=== PATIENT | male | born 1965 | race Caucasian/White ===

== ENCOUNTER 2025-06-21 16:22 | Outpatient (AMB) | payer BC, SELFPAY ==
--- OUTSIDE RECORDS SUMMARY | 2024-10-30 13:33 | XMS_ITS | Encounter Summary ---
Author Organization [facility] Address [address] [place] [address] Care Team Providers Care Cell Biologist Name Role Phone Unknown Primary Care Provider [phone] Encounter Details Date Type Department Care Team (Late st Contact Info) Description 10/30/2024 12:33 PM EST Hospital Encounter [facility] [address] [place] [address] Social History Tobacco Use Types Packs/Day Years Used Date Smoking Tobacco: Never Assessed Sex and Gender Information Value Date Recorded Sex Assigned at Male 08/04/2023 9:49 AM EDT Legal Sex Male 9:48 AM EDT Gender Identity Not on file Sexual Orientation Not on file documented as of this encounter Plan of Treatment Not on file documented as of this encounter Procedures Procedure Name Priority Date/Time Associated Diagnosis Comments XR ELBOW 3+ VIEWS-RIGHT STAT 10/30/2024 12:38 PM EST Right elbow pain documented in this encounter Results * XR Elbow 3+ views-Right (10/30/2024 12:38 PM EST) Anatomical Region Laterality Modality Elbow Right Computed Radiogr aphy 10/30/2024 12:4 6 PM EST Impressions 10/30/2024 12:56 PM EST No significant osseous abnormality detected. Narrative 10/30/2024 12:56 PM EST XR ELBOW 3+ VIEWS-RIGHT: 10/30/2024 12:33 PM CLINICAL HISTORY: right olecranon tenderness, direct injury from fall. Right elbow pain. FINDINGS: The osseous structures are intact. There is no evidence of degenerative change. There is no evidence of significant arthropathy. There is no evidence of pathologic calcifications or soft tissue swelling. Procedure Note Kristofer Kwon MD - 10/30/2024 XR ELBOW 3+ VIEWS-RIGHT: 10/30/2024 12:33 PM CLINICAL HISTORY: right olecranon tenderness, direct injury from fall. Right elbow pain. FINDINGS: The osseous structures are intact. There is no evidence of degenerativechange. There is no evidence of significant arthropathy. There is noevidence of pathologic calcifications or soft tissue swelling. IMPRESSION: No significant osseous abnormality detected. Zack ENRIQUEZ [facility] ORDERAB LES Final Result documented in this encounter Visit Diagnoses Not on filedocumented in this encounter Care Teams Cell Biologist Relationship Specialty Start Date End Date Unknown Unknow Provider Address PCP - General 08/04/23 documented as of this encounter
--- OUTSIDE RECORDS SUMMARY | 2025-06-21 16:25 | XMS_ITS ---
Author Name [facility] Organization Unknown Problems Problem Status Onset Date Problem Type Date of Resoluti on Source Contusion of right elbow, initial encounter active EncounterDiagnosisAct [facility] Right elbow pain active EncounterDiagnosisAct [facility] Encounters Encounter Type Encounter Reason Primary Diagnosis Location Date Ambulatory [facility] 10/30/2024 Ambulatory Elbow Injury Elbow Injury [facility] 10/30/2024 Ambulatory Impacted cerumen, bilateral Impacted cerumen, bilateral [facility] 08/04/2023 Care Team Organization Name Specialty Phone Email Start Date End [facility] 08/04/2023 01/24/2025 [facility] 08/04/2023 08/04/2023
--- NOTE | 2025-06-21 16:26 | A.OFFVIS_ITS ---
Intake Visit Reasons: 1 year follow up Allergies No Known Allergies Allergy (Verified 06/21/25 16:28) Medication List - Last Reconciled 06/21/25 by Leticia Chance CNP amitriptyline 25 mg PO BEDTIME 90 days HPI Comments Details: He was doing okay. He works in a noisy factory. Hearing was getting worse and he had some occasional ringing in ears, worse when it was quiet. He had hearing test at work and was waiting for results. Headaches have been okay with amitriptyline. Sleep was usually okay. He has an upcoming appointment with his PCP. Not drinking. History of muscle tension type headache, previous history of alcohol use disorder, has not had any alcohol since 2017. He had an arachnoid cyst on his CAT scan. [facility] Medical History (Updated 06/21/25 @ 16:34 by Leticia Chance CNP) Cerebral cyst Tension headache Review of Systems Const Denies chills, Denies daytime sleepiness, Denies difficulty sleeping, Denies fatigue, Denies fever(s), Denies frequent falls, Reports headache(s), Denies increased appetite, Denies poor appetite, Denies snoring, Denies weakness, Denies weight gain and Denies weight loss Eyes Denies loss of vision ENT Denies vertigo, Denies dizziness, Reports headache(s), Denies neck pain and Reports tinnitus Card Denies chest pain at rest, Denies chest pain with activity, Denies syncope, Denies leg edema, Denies palpitations, Denies dyspnea and Denies dyspnea on exertion Resp Denies cough, Denies dyspnea, Denies dyspnea on exertion and Denies snoring GI Denies abdominal pain, Denies constipation, Denies heartburn, Denies diarrhea and Denies nausea Denies urinary frequency, Denies urinary incontinence and Denies urinary urgency Musc Denies abnormal gait, Denies back pain, Denies myalgias, Denies arthralgias, Denies neck pain, Denies numbness and Denies tingling Neuro Denies abnormal gait, Denies vertigo, Denies dizziness, Denies syncope, Denies frequent falls, Reports headache(s), Denies lack of coordination, Denies loss of vision, Denies memory loss, Denies numbness, Denies Other visual disturbances, Denies restless legs, Denies seizure-like activity, Denies tingling, Denies paresthesias, Denies tremor(s) and Denies weakness Psych Denies anxiety, Denies depression, Denies auditory hallucinations, Denies memory loss and Denies visual hallucinations Endo Denies fatigue and Denies palpitations Physical Exam Const Other: General Appearance:? normal, in no acute distress. Heart:? S1, S2 normal, no murmurs. Lungs:? clear anteriorly and posteriorly. Musculoskeletal:? normal. Extremities:? no edema. Psych:? alert, oriented, cognitive function intact, cooperative with exam. Neuro Other: Abnormal Neurological Findings:?Decreased hearing. Mental Status: alert and oriented X 3. Normal attention, orientation, memory, and affect. Cranial Nerves: Pupils are equal, round, and reactive to light. External ocular muscles are intact. Visual fnich are full, no ptosis. Face is symmetrical, no facial weakness or droop. Facial sensations are normal. Tongue protrudes in mi dline. Palate elevates symmetrically. Shoulder shrugging is normal Motor Examination: Normal muscle tone, bulk and strength. No atrophy or fasciculations. No drift of the extended upper extremities. DTR 2+. Plantars are flexor. Sensory Exam: Normal light touch, temperature, pinprick, vibration, and joint- position sensations. Rhomberg sign is absent. Coordination: No ataxia. No titubation. Hhsgnd-[id number], euqj-yrmb-pnbq test, and rapid alternating movements were normal. Gait Exam: Within normal limits. Cerebellar Signs: Kserij-ed-tdgb and ryqf-wu-edgp is normal. No dysdiadochokinesia. Extrapyramidal System: No tremor, rigidity with normal facial expressions. No bradykinesia. No bradyphrenia. Normal arm swing and posture. No propulsion or retropulsion. Speech: Normal. No dysphasia or dysarthria. Assessment & Plan Assessment & Plan (1) Tension headache: Code(s): G44.209 - Tension-type headache, unspecified, not intractable Category: Medical Plan: Continue amitriptyline 25mg 1 tablet at bedtime. (2) Cerebral cyst: Code(s): G93.0 - Cerebral cysts Category: Medical (3) Tinnitus: Code(s): H93.19 - Tinnitus, unspecified ear Category: Medical Qualifiers: Laterality: unspecified laterality Qualified Code(s): H93.19 - Tinnitus, unspecified ear Plan: Discuss ENT referral with PCP. Plan . Medications: Refilled amitriptyline 25 mg PO BEDTIME 90 tabs 1RF 90 days Coding Level of Care Code Est Pt Level 4 (36714) Diagnoses Tension headache G44.209 Cerebral cyst G93.0 Tinnitus, unspecified laterality H93.19 Laterality: unspecified laterality
== END 2025-06-21 16:39 | disposition home or self-care (01) ==
PROVIDERS: Visit Provider Registered Nurse
DX: G44.209 Tension-type headache, unspecified, not intractable (principal); G93.0 Cerebral cysts; H93.19 Tinnitus, unspecified ear
CPT/HCPCS: 99214